=== PATIENT | male | born 1995 | race Two or more races ===

== ENCOUNTER 2018-02-15 19:28 | Emergency (ER) | payer SELFPAY ==
[2018-02-15] MEDS ORDERED: CEFTRIAXONE INJ 250 MG VIAL IM ONE (22:11)
[2018-02-15] MEDS ORDERED: AZITHROMYCIN 250 MG TABLET PO ONE (22:11)
[2018-02-15] MEDS ORDERED: LIDOCAINE 1% INJ-PF (10 MG/ML) 30 ML SDV INJ ONE (22:11)
--- NOTE | 2018-02-15 22:20 | ER Document Report ---
HPI - HPI Pain Level: Denies Notes: Patient is a 22-year-old male no significant past medical history who presents to the ED requesting STD testing for chlamydia and gonorrhea after being told by a girl he had intercourse with that she had chlamydia. Patient states that he has not had any symptoms to note otherwise. He is otherwise eating and drinking without difficulties. He is urinating normally and having normal bowel movements. No other concerns or complaints. Denies any headache, fever, neck pain, URI, sore throat, chest pain, palpitations, syncope, cough, shortness of breath, wheeze, dyspnea, abdominal pain, nausea/vomiting/diarrhea, urinary retention, dysuria, hematuria, urethral discharge, joint pains, or rash. - ROS Systems Reviewed and Negative: Yes All other systems reviewed and negative Past Medical History - Social History Smoking Status: Never Smoker Family History: Reviewed & Not Pertinent Vertical Provider Document - CONSTITUTIONAL Agree With Documented VS: Yes Notes: PHYSICAL EXAMINATION: GENERAL: Well-appearing, well-nourished and in no acute distress. LUNGS: Breath sounds clear to auscultation bilaterally and equal. No wheezes rales or rhonchi. HEART: Regular rate and rhythm without murmurs, rubs, gallops. ABDOMEN: Soft, nontender, nondistended abdomen. No guarding, no rebound. No masses appreciated. Normal bowel sounds present. No CVA tenderness bilaterally. : no obvious lympadenopathy or hernia. No rash, lesions, ulcerations, swelling, erythema, or warmth. No scrotal/penile tenderness. No urethral discharge. Musculoskeletal: FROM to passive/active. Strength 5+/5. Extremities: No cyanosis, clubbing, or edema b/l. Peripheral pulses 2+. Capillary refill less than 3 seconds. NEUROLOGICAL: Normal speech, normal gait. PSYCH: Normal mood, normal affect. SKIN: Warm, Dry, normal turgor, no rashes or lesions noted. - INFECTION CONTROL TRAVEL OUTSIDE OF THE [place] IN LAST 30 DAYS: No Course - Re-evaluation Re-evalutation: 02/15/18 22:18 Patient is an afebrile, well-hydrated, 22-year-old male who presents to the ED with exposure to STD. Vitals are acceptable. PE is otherwise unremarkable. Patient is nontoxic-appearing and has no significant tachycardia, tachypnea, or hypoxia. He is tolerating p.o. without difficulties. Chlamydia/gonorrhea tests are pending. Patient was treated with Zithromax and Rocephin. No other labs or imaging warranted at this time based on H&P. Conservative measures otherwise for symptoms. Recheck with your PCM/health department this week. Return to the ED with any worsening/concerning symptoms otherwise as reviewed in discharge. Patient is in agreement. - Vital Signs Vital signs: Temp Pulse Resp BP Pulse Ox 98.7 F 72 16 133/64 H 99 02/15/18 19:50 02/15/18 19:50 02/15/18 19:50 02/15/18 19:50 02/15/18 19:50 Discharge - Discharge Clinical Impression: STD exposure Condition: Stable Disposition: HOME, SELF-CARE Additional Instructions: Push fluids (i.e. water, cranberry juice) Proper hygenic technique Keep the skin clean Safe sexual practices with condoms everytime Tylenol/ibuprofen as needed Check in with the health department this week for further testing* Your chlamydia/Ghon test are pending and you will be notified if positive results; you may call in 1 day for the results as well Return immediately if symptoms worsen F/u with your PCM in 2-3 days for a recheck Consider consult with a Urologist for ongoing/worsening symptoms. Return to the ED with any development of CHENEY/fever, trouble with vision, eye redness, worsening pain, urethral discharge, urinary retention, blood in the urine, flank pain, abdominal pain, n/v, Chest Pain, shortness of breath, joint pains, trouble breathing, or any other worsening/concerning symptoms as needed otherwise. Forms: Elevated Blood Pressure [facility] - Follow up in 3-5 days
[2018-02-15 22:23] VITALS: BP 146/74
[2018-02-15 23:24] LABS: CHLAM PCR NOT DETECTED (NOT DETECT); GON PCR NOT DETECTED (NOT DETECT)
== END 2018-02-15 22:50 | disposition home or self-care (01) ==
LOC: ER 19:28
DX: Z20.2 Contact with and (suspected) exposure to infections with a predominantly sexual mode of transmission (principal)
CPT/HCPCS: 99283; 96372; 87491; 87591; J3490; J0696